=== PATIENT | female | born 1970 | race African-American/Black ===

== ENCOUNTER 2017-11-09 12:24 | Observation (INO) ==
[2017-11-09 14:38] LABS: Basophils % 0.2 % (0.0-0.8); Eosinophils % 0.2 % (0.00-10.9); Hematocrit 18.4 VOL% (35.7-47.0); Immature Granulocytes % 1.1 %; Immature Granulocytes Absolute 0.06 #; Lymphocytes # 0.9 10*3/uL (1.4-4.0); Lymphocytes % 15.3 % (21.3-54.2); Mean Corpuscular HGB Conc 30.4 GM/DL (32-36); Mean Corpuscular Hemoglobin 23 PG (27-34); Mean Corpuscular Volume 75.4 FL (87-102); Mean Platelet Volume 10.3 FL (9.6-12.0); Monocytes # 0.8 10*3/uL (0.11-0.8); Monocytes % 14.6 % (1.7-12.7); NRBC # 0.03 10*3/uL; Neutrophils # 3.9 10*3/uL (1.4-7.4); Neutrophils % 68.6 % (38.7-73.9); Platelet Count 248 T/CUMM (130-400); Red Blood Count 2.44 MC/CUMM (3.8-5.5); Red Cell Distribution Width 15.8 % (9.3-17.3); White Blood Count 5.7 T/CUMM (4-12)
[2017-11-09 14:42] LABS: Hemoglobin 5.6 GM/DL (12.0-16.0)
[2017-11-09 15:17] LABS: Calcium 5.9 MG/DL (8.5-10.1); Magnesium 1.5 MG/DL (1.8-2.4); Osmolality,Calculated 295.7 MOS/KG (273-304); Potassium 4.7 MMOL/L (3.5-5.1)
[2017-11-09] MEDS ORDERED: SODIUM CHLORIDE 0.9% 1,000 ML IV PRN (15:29)
[2017-11-09] MEDS ORDERED: hydrALAZINE 20 MG/1 ML VIAL IV STA (15:30)
[2017-11-09] MEDS ORDERED: DEXTROSE 50% 25 GM/50 ML VIAL IV PRN (15:56)
[2017-11-09] MEDS ORDERED: GLUCAGON 1 MG VIAL IM PRN (15:56)
[2017-11-09] MEDS: INSULIN LISPRO 100 UNIT/ML SUBCUT SCH (17:17)
[2017-11-10] MEDS: INSULIN LISPRO 100 UNIT/ML SUBCUT SCH ×3 (01:09→13:56)
[2017-11-10 05:35] LABS: Basophils % 0.2 % (0.0-0.8); Eosinophils % 0.7 % (0.00-10.9); Hematocrit 22.1 VOL% (35.7-47.0); Immature Granulocytes % 0.9 %; Immature Granulocytes Absolute 0.05 #; Lymphocytes # 0.9 10*3/uL (1.4-4.0); Lymphocytes % 16.8 % (21.3-54.2); Mean Corpuscular HGB Conc 31.7 GM/DL (32-36); Mean Corpuscular Hemoglobin 26 PG (27-34); Mean Corpuscular Volume 81.3 FL (87-102); Mean Platelet Volume 10.1 FL (9.6-12.0); Monocytes # 0.9 10*3/uL (0.11-0.8); Monocytes % 16.5 % (1.7-12.7); NRBC # 0.02 10*3/uL; Neutrophils # 3.5 10*3/uL (1.4-7.4); Neutrophils % 64.9 % (38.7-73.9); Platelet Count 201 T/CUMM (130-400); Red Blood Count 2.72 MC/CUMM (3.8-5.5); Red Cell Distribution Width 16.5 % (9.3-17.3); White Blood Count 5.5 T/CUMM (4-12)
[2017-11-10 06:05] LABS: Albumin 2.4 G/DL (3.4-5.0); Bilirubin,Total 0.8 MG/DL (0.2-1.0); Magnesium 1.6 MG/DL (1.8-2.4); Osmolality,Calculated 294.5 MOS/KG (273-304); Potassium 4.7 MMOL/L (3.5-5.1); Total Protein 6.1 G/DL (6.4-8.3)
[2017-11-10 06:08] LABS: Calcium 5.7 MG/DL (8.5-10.1)
[2017-11-10] MEDS ORDERED: CALCIUM GLUCONATE 2,000 MG in SODIUM CHLORIDE 0.9% 100 ML IV ONE (06:25)
[2017-11-10 06:45] LABS: Band Neutrophils 1 % (0-10); Giant Platelets Few; Hypochromasia 1+; Lymphocytes 18 % (20-55); Metamyelocytes 1 %; Ovalocytes Slight; Platelet Estimate Adequate; Segmented Neutrophils 65 % (50-85); Total Cells Counted 100
[2017-11-10 12:12] VITALS: BP 141/83
== END 2017-11-10 13:57 | disposition home or self-care (01) ==
LOC: N.ED 12:24 → N.EDINP 12:24 → N.4E 16:57
PROVIDERS: ADMIT Hospitalist; ATTEND Hospitalist

== ENCOUNTER 2017-12-17 10:31 | Inpatient (IN) ==
[2017-12-17] MEDS ORDERED: SODIUM CHLORIDE 0.9% 1,000 ML IV PRN ×2 (12:25→12:46)
[2017-12-17] MEDS ORDERED: ONDANSETRON 4 MG/2 ML VIAL IV PRN (12:33)
[2017-12-17 12:51] LABS: Eosinophils # 0.2 10*3/uL (0.0-0.87); Eosinophils % 4.4 % (0.00-10.9); Immature Granulocytes % 0.6 %; Immature Granulocytes Absolute 0.03 #; Lymphocytes # 0.7 10*3/uL (1.4-4.0); Lymphocytes % 14.5 % (21.3-54.2); Mean Corpuscular HGB Conc 32.1 GM/DL (32-36); Mean Corpuscular Hemoglobin 24 PG (27-34); Mean Corpuscular Volume 73.3 FL (87-102); Mean Platelet Volume 9.4 FL (9.6-12.0); Monocytes # 0.5 10*3/uL (0.11-0.8); Monocytes % 9.7 % (1.7-12.7); Neutrophils # 3.4 10*3/uL (1.4-7.4); Neutrophils % 70.8 % (38.7-73.9); Platelet Count 199 T/CUMM (130-400); Red Blood Count 2.21 MC/CUMM (3.8-5.5); Red Cell Distribution Width 21.5 % (9.3-17.3); White Blood Count 4.8 T/CUMM (4-12)
[2017-12-17 13:01] LABS: Hematocrit 16.2 VOL% (35.7-47.0); Hemoglobin 5.2 GM/DL (12.0-16.0)
[2017-12-17 13:35] LABS: Alanine Aminotransferase 32 U/L (13-56); Albumin 2.8 G/DL (3.4-5.0); Alkaline Phosphatase 163 U/L (45-117); Aspartate Amino Transferase 40 U/L (0-37); Bilirubin,Total < 0.39 MG/DL (0.2-1.0); Blood Urea Nitrogen 115 MG/DL (7-18); Glucose 100 MG/DL (74-106); Osmolality,Calculated 313.5 MOS/KG (273-304); Sodium 139 MMOL/L (136-145); Total Protein 6.5 G/DL (6.4-8.3)
[2017-12-17 13:42] LABS: Calcium < 5.0 MG/DL (8.5-10.1)
[2017-12-17] MEDS ORDERED: ceFAZolin 1,000 MG in SYRINGE 1 EACH IV ONE (14:19)
[2017-12-17] MEDS ORDERED: HEPARIN 5,000 UNIT/1 ML VIAL ONE (14:36)
[2017-12-17 15:10] LABS: Hepatitis A Ab IgM Quant 0.09 Index; Hepatitis A Ab IgM Result Negative (Negative); Hepatitis B Core IgM Quant 0.18 Index; Hepatitis B Core IgM Result Negative (Negative); Hepatitis C Virus Ab Quant 0.09 Index; Hepatitis C Virus Ab Result Negative (Negative)
[2017-12-17 15:41] LABS: Hepatitis B Surface Ag Quant < 0.10 Index; Hepatitis B Surface Ag Result Negative (Negative)
[2017-12-17] MEDS ORDERED: PROPOFOL 200 MG/20 ML VIAL IV ONE (16:47)
[2017-12-17] MEDS ORDERED: fentaNYL 100 MCG/2 ML VIAL ONE (16:48)
[2017-12-17] MEDS ORDERED: MIDAZOLAM 2 MG/2 ML VIAL ONE (16:48)
[2017-12-17] MEDS: CALCIUM ACETATE 667 MG CAPSULE PO SCH (18:34)
[2017-12-18 06:48] LABS: Eosinophils # 0.2 10*3/uL (0.0-0.87); Eosinophils % 5.1 % (0.00-10.9); Hematocrit 18.9 VOL% (35.7-47.0); Immature Granulocytes % 0.9 %; Immature Granulocytes Absolute 0.04 #; Lymphocytes # 0.7 10*3/uL (1.4-4.0); Lymphocytes % 16.7 % (21.3-54.2); Mean Corpuscular HGB Conc 32.8 GM/DL (32-36); Mean Corpuscular Hemoglobin 24 PG (27-34); Mean Corpuscular Volume 73.8 FL (87-102); Mean Platelet Volume 10.4 FL (9.6-12.0); Monocytes # 0.5 10*3/uL (0.11-0.8); Monocytes % 12.3 % (1.7-12.7); NRBC # 0.02 10*3/uL; Neutrophils # 2.8 10*3/uL (1.4-7.4); Platelet Count 185 T/CUMM (130-400); Red Blood Count 2.56 MC/CUMM (3.8-5.5); Red Cell Distribution Width 20.4 % (9.3-17.3); White Blood Count 4.3 T/CUMM (4-12)
[2017-12-18] MEDS ORDERED: HEPARIN 10,000 UNIT/10 ML VIAL IV PRN (06:49)
[2017-12-18 06:54] LABS: Hemoglobin 6.2 GM/DL (12.0-16.0)
[2017-12-18] MEDS: CALCIUM ACETATE 667 MG CAPSULE PO SCH ×3 (08:11→16:33)
[2017-12-18] MEDS: FAMOTIDINE 20 MG TABLET PO SCH (08:11)
[2017-12-18] MEDS: ALLOPURINOL 100 MG TABLET PO SCH (08:12)
[2017-12-18] MEDS: LEVOTHYROXINE 100 MCG TABLET PO SCH (08:12)
[2017-12-19 07:11] LABS: Basophils % 0.2 % (0.0-0.8); Eosinophils # 0.2 10*3/uL (0.0-0.87); Eosinophils % 3.6 % (0.00-10.9); Hematocrit 24.7 VOL% (35.7-47.0); Immature Granulocytes % 0.7 %; Immature Granulocytes Absolute 0.04 #; Lymphocytes # 0.6 10*3/uL (1.4-4.0); Lymphocytes % 10.7 % (21.3-54.2); Mean Corpuscular HGB Conc 32.8 GM/DL (32-36); Mean Corpuscular Hemoglobin 26 PG (27-34); Mean Corpuscular Volume 77.7 FL (87-102); Mean Platelet Volume 9.6 FL (9.6-12.0); Monocytes # 0.8 10*3/uL (0.11-0.8); Monocytes % 13.6 % (1.7-12.7); NRBC # 0.02 10*3/uL; Neutrophils # 3.9 10*3/uL (1.4-7.4); Neutrophils % 71.2 % (38.7-73.9); Red Cell Distribution Width 18.4 % (9.3-17.3); White Blood Count 5.5 T/CUMM (4-12)
[2017-12-19 07:18] LABS: Red Blood Count 3.18 MC/CUMM (3.8-5.5)
[2017-12-19 07:19] LABS: Hemoglobin 8.1 GM/DL (12.0-16.0); Platelet Count 127 T/CUMM (130-400)
[2017-12-19 07:30] LABS: Hemoglobin 8.1 GM/DL (12.0-16.0)
[2017-12-19 08:07] LABS: Osmolality,Calculated 285.5 MOS/KG (273-304); Potassium 3.7 MMOL/L (3.5-5.1)
[2017-12-19 09:17] LABS: Calcium 5.6 MG/DL (8.5-10.1)
[2017-12-19] MEDS: LEVOTHYROXINE 100 MCG TABLET PO SCH (09:20)
[2017-12-19] MEDS: FAMOTIDINE 20 MG TABLET PO SCH (09:20)
[2017-12-19] MEDS: ALLOPURINOL 100 MG TABLET PO SCH (09:20)
[2017-12-19] MEDS: CALCIUM ACETATE 667 MG CAPSULE PO SCH ×3 (09:20→16:25)
[2017-12-19] MEDS ORDERED: cloNIDine 0.1 MG TABLET PO ONE (16:09)
[2017-12-19] MEDS: CARVEDILOL 25 MG TABLET PO SCH ×2 (16:25→20:44)
[2017-12-19] MEDS ORDERED: cloNIDine 0.1 MG TABLET PO SCH (20:00)
[2017-12-19] MEDS: cloNIDine 0.1 MG TABLET PO PRN (20:44)
[2017-12-19] MEDS ORDERED: CARVEDILOL 25 MG TABLET PO SCH (21:00)
[2017-12-20] MEDS: cloNIDine 0.1 MG TABLET PO PRN ×3 (00:46→09:35)
[2017-12-20 03:57] LABS: Eosinophils # 0.3 10*3/uL (0.0-0.87); Eosinophils % 5.5 % (0.00-10.9); Hematocrit 31.2 VOL% (35.7-47.0); Hemoglobin 10.5 GM/DL (12.0-16.0); Immature Granulocytes % 0.7 %; Immature Granulocytes Absolute 0.03 #; Lymphocytes # 0.7 10*3/uL (1.4-4.0); Lymphocytes % 15.9 % (21.3-54.2); Mean Corpuscular HGB Conc 33.7 GM/DL (32-36); Mean Corpuscular Hemoglobin 26 PG (27-34); Monocytes # 0.8 10*3/uL (0.11-0.8); Monocytes % 18.6 % (1.7-12.7); Neutrophils # 2.7 10*3/uL (1.4-7.4); Neutrophils % 59.3 % (38.7-73.9); Platelet Count 110 T/CUMM (130-400); Red Cell Distribution Width 17.7 % (9.3-17.3); White Blood Count 4.5 T/CUMM (4-12)
[2017-12-20 04:34] LABS: Eosinophils 4 % (0-10); Lymphocytes 13 % (20-55); Platelet Estimate Adequate; Segmented Neutrophils 70 % (50-85); Total Cells Counted 100
[2017-12-20 04:35] LABS: Hypochromasia 1+; Polychromasia Slight; Tear Drop Cells Slight
[2017-12-20 08:20] VITALS: BP 157/98
[2017-12-20] MEDS: ALLOPURINOL 100 MG TABLET PO SCH (09:34)
[2017-12-20] MEDS: CARVEDILOL 25 MG TABLET PO SCH (09:34)
[2017-12-20] MEDS: FAMOTIDINE 20 MG TABLET PO SCH (09:34)
[2017-12-20] MEDS: LEVOTHYROXINE 100 MCG TABLET PO SCH (09:34)
[2017-12-20] MEDS: CALCIUM ACETATE 667 MG CAPSULE PO SCH (09:34)
== END 2017-12-20 11:37 | disposition home or self-care (01) | DRG 698 ==
LOC: N.5E 11:01 → SUATTDRO 11:01
PROVIDERS: ADMIT Internal Medicine Nephrology; ATTEND Internal Medicine Nephrology

== ENCOUNTER 2019-04-14 13:00 | Inpatient (IN) ==
[2019-04-21] MEDS ORDERED: LACTATED RINGERS 1,000 ML IV SCH (06:00)
[2019-04-21] MEDS ORDERED: SODIUM CHLORIDE 0.9% 250 ML IV SCH (07:00)
[2019-04-21 07:10] LABS: Basophils % 0.4 % (0.0-0.8); Eosinophils # 0.7 10*3/uL (0.0-0.87); Eosinophils % 13.3 % (0.00-10.9); Hematocrit 35.1 VOL% (35.7-47.0); Hemoglobin 10.5 GM/DL (12.0-16.0); Immature Granulocytes % 1.8 %; Lymphocytes # 0.6 10*3/uL (1.4-4.0); Lymphocytes % 11.5 % (21.3-54.2); Mean Corpuscular HGB Conc 29.9 GM/DL (32-36); Mean Corpuscular Volume 87.1 FL (87-102); Mean Platelet Volume 10.7 FL (9.6-12.0); Monocytes % 9.6 % (1.7-12.7); Neutrophils % 63.4 % (38.7-73.9); Platelet Count 133 T/CUMM (130-400); Red Blood Count 4.03 MC/CUMM (3.8-5.5); Red Cell Distribution Width 17.2 % (9.3-17.3); White Blood Count 5.4 T/CUMM (4-12)
[2019-04-21 07:34] LABS: Alanine Aminotransferase 16 U/L (13-56); Albumin 2.9 G/DL (3.4-5.0); Alkaline Phosphatase 105 U/L (45-117); Aspartate Amino Transferase 22 U/L (0-37); Bilirubin,Total < 0.39 MG/DL (0.2-1.0); Blood Urea Nitrogen 40 MG/DL (7-18); Glucose 97 MG/DL (74-106); Osmolality,Calculated 288.4 MOS/KG (273-304); Total Protein 7.2 G/DL (6.4-8.3)
[2019-04-21] MEDS ORDERED: cefOXitin 2,000 MG in SYRINGE 1 EACH IV ONE (08:00)
[2019-04-21 08:03] LABS: Eosinophils 11 % (0-10); Hypochromasia 1+; Lymphocytes 11 % (20-55); Ovalocytes Slight; Platelet Estimate Normal; Segmented Neutrophils 71 % (50-85); Total Cells Counted 100
[2019-04-21] MEDS ORDERED: LIDOCAINE 1% 20 ML VIAL ONE (09:06)
[2019-04-21] MEDS ORDERED: TISSUE ADHESIVE 1 EACH APPLICATOR TOP ONE (10:42)
[2019-04-21] MEDS ORDERED: BUPIVACAINE 0.5% 50 ML VIAL ONE ×2 (12:08→12:34)
[2019-04-21] MEDS ORDERED: DEXAMETHASONE 4 MG/1 ML VIAL ONE ×2 (12:08→12:34)
[2019-04-21] MEDS ORDERED: ONDANSETRON 4 MG/2 ML VIAL IV PRN ×2 (12:34→13:57)
[2019-04-21] MEDS ORDERED: ONDANSETRON 4 MG/2 ML VIAL ONE (12:38)
[2019-04-21] MEDS ORDERED: HYDROmorphone 2 MG/1 ML VIAL ONE (12:38)
[2019-04-21] MEDS: HYDROmorphone 2 MG/1 ML VIAL IV PRN ×2 (12:40→12:45)
[2019-04-21] MEDS ORDERED: fentaNYL 100 MCG/2 ML VIAL ONE (12:41)
[2019-04-21] MEDS ORDERED: PROPOFOL 200 MG/20 ML VIAL IV ONE (12:41)
[2019-04-21] MEDS ORDERED: SEVOFLURANE 1 UNIT/15 MINUTE INH ONE (12:41)
[2019-04-21] MEDS ORDERED: SUCCINYLCHOLINE 200 MG/10 ML VIAL ONE (12:42)
[2019-04-21] MEDS ORDERED: GLYCOPYRROLATE 0.4 MG/2 ML VIAL ONE (12:42)
[2019-04-21] MEDS ORDERED: ROCURONIUM 100 MG/10 ML VIAL IV ONE (12:42)
[2019-04-21] MEDS ORDERED: MIDAZOLAM 2 MG/2 ML VIAL ONE (12:42)
[2019-04-21] MEDS ORDERED: NEOSTIGMINE 10 MG/10 ML VIAL ONE (12:42)
[2019-04-21] MEDS ORDERED: PHENYLEPHRINE 1 MG/10 ML SYRINGE IV ONE (12:42)
[2019-04-21 13:18] LABS: Apearance,Urine CLEAR (Clear); Bilirubin,Urine Negative (Negative); Blood, Urine Small mg/dL (Negative); Glucose,Urine (UA) 50 mg/dL (Negative); Ketones,Urine Negative (Negative); Nitrite,Urine Negative (Negative); Protein,Urine 30 MG/DL; RBC,Urine 3 /HPF (0-4); Squamous Epithelial Cell,Urine Occasional /HPF (0-10); Urine Color Straw (Yellow); Urine Specific Gravity 1.008 (1.001-1.035); Urine Urobilinogen < 2.0 EU/DL (0.2-1.0); WBC,Urine 1 /HPF (0-6)
[2019-04-21] MEDS ORDERED: BENZOCAINE/MENTHOL LOZENGE 18/BOX PO PRN (13:57)
[2019-04-21] MEDS ORDERED: BISACODYL 10 MG SUPP RECTAL PRN (13:57)
[2019-04-21] MEDS ORDERED: ACETAMINOPHEN 325 MG TABLET PO PRN (13:57)
[2019-04-21] MEDS ORDERED: IBUPROFEN 800 MG TABLET PO PRN (13:57)
[2019-04-21] MEDS ORDERED: DOCUSATE SODIUM 100 MG CAPSULE PO PRN (13:57)
[2019-04-21] MEDS ORDERED: MAGNESIUM HYDROXIDE SUSP 30 ML UDCUP PO PRN (13:57)
[2019-04-21] MEDS ORDERED: NEOSTIGMINE 10 MG/10 ML VIAL IV ONE (15:04)
[2019-04-21] MEDS: SODIUM CHLORIDE 0.9% 1,000 ML IV SCH ×2 (15:10→20:43)
[2019-04-21] MEDS ORDERED: NALOXONE 0.4 MG/ML VIAL IV PRN (16:31)
[2019-04-21] MEDS ORDERED: HYDROmorphone PCA 30 MG/30 ML SYRINGE IV SCH (17:00)
[2019-04-21] MEDS: KETOROLAC 15 MG/1 ML VIAL IV SCH ×2 (17:36→23:37)
[2019-04-21] MEDS: ceFAZolin 1,000 MG in SYRINGE 1 EACH IV SCH (18:35)
[2019-04-21] MEDS: CLINDAMYCIN 1% LOTION 60 ML BOTTLE TOP SCH (20:05)
[2019-04-21] MEDS ORDERED: HydrOXYzine PAMOATE 50 MG CAPSULE PO PRN (21:00)
[2019-04-22] MEDS: ceFAZolin 1,000 MG in SYRINGE 1 EACH IV SCH (02:29)
[2019-04-22] MEDS: KETOROLAC 15 MG/1 ML VIAL IV SCH (04:50)
[2019-04-22 05:54] LABS: Basophils % 0.2 % (0.0-0.8); Hematocrit 34.5 VOL% (35.7-47.0); Hemoglobin 10.3 GM/DL (12.0-16.0); Immature Granulocytes % 1.3 %; Immature Granulocytes Absolute 0.07 #; Lymphocytes # 0.6 10*3/uL (1.4-4.0); Lymphocytes % 10.1 % (21.3-54.2); Mean Corpuscular HGB Conc 29.9 GM/DL (32-36); Mean Corpuscular Volume 87.1 FL (87-102); Monocytes % 6.5 % (1.7-12.7); Neutrophils % 81.9 % (38.7-73.9); Platelet Count 105 T/CUMM (130-400); Red Blood Count 3.96 MC/CUMM (3.8-5.5); Red Cell Distribution Width 16.9 % (9.3-17.3); White Blood Count 5.6 T/CUMM (4-12)
[2019-04-22 06:09] LABS: Anisocytosis 1+; Hypochromasia 1+; Platelet Estimate Decreased
[2019-04-22] MEDS: CLINDAMYCIN 1% LOTION 60 ML BOTTLE TOP SCH ×2 (07:30→22:14)
[2019-04-22] MEDS: CALCIUM ACETATE 667 MG CAPSULE PO SCH ×2 (18:21→18:44)
[2019-04-22] MEDS: methIMAzole 5 MG TABLET PO SCH (18:22)
[2019-04-22] MEDS: MULTIVITAMIN (BEROCCA) TABLET PO SCH (18:22)
[2019-04-22] MEDS: ALLOPURINOL 100 MG TABLET PO SCH (18:23)
[2019-04-22] MEDS: amLODIPine 5 MG TABLET PO SCH (18:25)
[2019-04-22] MEDS: LISINOPRIL 20 MG TABLET PO SCH (18:26)
[2019-04-22] MEDS: CARVEDILOL 25 MG TABLET PO SCH ×2 (18:43→23:11)
[2019-04-23] MEDS: CLINDAMYCIN 1% LOTION 60 ML BOTTLE TOP SCH (07:40)
[2019-04-23] MEDS: CALCIUM ACETATE 667 MG CAPSULE PO SCH ×2 (09:23→11:56)
[2019-04-23] MEDS: methIMAzole 5 MG TABLET PO SCH (09:23)
[2019-04-23] MEDS: MULTIVITAMIN (BEROCCA) TABLET PO SCH (09:23)
[2019-04-23] MEDS: LISINOPRIL 20 MG TABLET PO SCH (09:23)
[2019-04-23] MEDS: CARVEDILOL 25 MG TABLET PO SCH (09:24)
[2019-04-23] MEDS: ALLOPURINOL 100 MG TABLET PO SCH (09:24)
[2019-04-23] MEDS: amLODIPine 5 MG TABLET PO SCH (09:24)
[2019-04-23 11:25] VITALS: BP 137/86
== END 2019-04-23 15:05 | disposition home or self-care (01) | DRG 742 ==
LOC: N.SDSINP 04-21 06:05 → MERGE 04-21 06:05 → N.OB 04-21 11:51
PROVIDERS: ADMIT Obstetrics & Gynecology; ATTEND Obstetrics & Gynecology

== ENCOUNTER 2019-08-20 17:20 | Inpatient (IN) ==
[2019-08-20] MEDS ORDERED: ONDANSETRON 4 MG/2 ML VIAL IV STA (17:38)
[2019-08-20] MEDS ORDERED: methylPREDNISolone SOD SUC 125 MG/2 ML VIAL IV STA (17:38)
[2019-08-20] MEDS ORDERED: AMPICILLIN/SULBACTAM 3,000 MG in SODIUM CHLORIDE 0.9% 100 ML IV STA (17:38)
[2019-08-20] MEDS ORDERED: KETOROLAC 30 MG/1 ML VIAL IV STA (17:40)
[2019-08-20] MEDS ORDERED: hydrALAZINE 20 MG/1 ML VIAL IV STA (17:43)
[2019-08-20 18:21] LABS: INR 0.9; PT Patient Result 10.3 SECS (9.6-12.2); Partial Thromboplastin Time 27.3 SECS (20.8-36.0)
[2019-08-20 18:30] LABS: Basophils % 0.5 % (0.0-0.8); Eosinophils # 0.1 10*3/uL (0.0-0.87); Eosinophils % 2.1 % (0.00-10.9); Hematocrit 35.7 VOL% (35.7-47.0); Immature Granulocytes % 1.8 %; Immature Granulocytes Absolute 0.07 #; Lymphocytes # 0.3 10*3/uL (1.4-4.0); Mean Corpuscular HGB Conc 28.9 GM/DL (32-36); Mean Corpuscular Volume 79.2 FL (87-102); NRBC # 0.03 10*3/uL; Neutrophils % 81.6 % (38.7-73.9); Platelet Count 157 T/CUMM (130-400); Red Blood Count 4.51 MC/CUMM (3.8-5.5); Red Cell Distribution Width 23.1 % (9.3-17.3); White Blood Count 3.8 T/CUMM (4-12)
[2019-08-20 18:31] LABS: Hemoglobin 10.3 GM/DL (12.0-16.0)
[2019-08-20 18:39] LABS: Alanine Aminotransferase 20 U/L (13-56); Albumin 3.2 G/DL (3.4-5.0); Alkaline Phosphatase 134 U/L (45-117); Aspartate Amino Transferase 34 U/L (0-37); Blood Urea Nitrogen 34 MG/DL (7-18); Calcium 11.3 MG/DL (8.5-10.1); Estimated Glom Filtration Rate 6 ML/MIN; Glucose 85 MG/DL (74-106); Osmolality,Calculated 281.7 MOS/KG (273-304); Total Protein 8.3 G/DL (6.4-8.3)
[2019-08-20 18:46] LABS: Troponin I 0.218 NG/ML (0.00-0.045)
[2019-08-20 20:20] LABS: Hypochromasia Slight; Microcytosis 1+; Ovalocytes Few; Platelet Estimate Normal
[2019-08-20] MEDS ORDERED: DOCUSATE SODIUM 100 MG CAPSULE PO PRN (23:52)
[2019-08-20] MEDS ORDERED: VANCOMYCIN INJ 1,000 MG in SODIUM CHLORIDE 0.9% 250 ML IV PRN (23:52)
[2019-08-21] MEDS: PIPERACILLIN/TAZOBACTAM 3,375 MG in SODIUM CHLORIDE 0.9% 100 ML IV SCH ×2 (01:39→12:12)
[2019-08-21] MEDS: HEPARIN 5,000 UNIT/1 ML VIAL SUBCUT SCH ×3 (01:42→15:56)
[2019-08-21 03:06] LABS: Basophils % 0.4 % (0.0-0.8); Hematocrit 32.2 VOL% (35.7-47.0); Hemoglobin 9.3 GM/DL (12.0-16.0); Immature Granulocytes % 2.2 %; Immature Granulocytes Absolute 0.06 #; Lymphocytes # 0.2 10*3/uL (1.4-4.0); Lymphocytes % 7.6 % (21.3-54.2); Mean Corpuscular HGB Conc 28.9 GM/DL (32-36); Mean Corpuscular Volume 78.7 FL (87-102); Mean Platelet Volume 9.3 FL (9.6-12.0); Monocytes % 3.6 % (1.7-12.7); NRBC # 0.02 10*3/uL; Neutrophils % 86.2 % (38.7-73.9); Platelet Count 131 T/CUMM (130-400); Red Blood Count 4.09 MC/CUMM (3.8-5.5); Red Cell Distribution Width 23.1 % (9.3-17.3); White Blood Count 2.8 T/CUMM (4-12)
[2019-08-21 03:37] LABS: Folate > 24.0 NG/ML (5.4-24.0); Vitamin B12 952 PG/ML (211-911)
[2019-08-21] MEDS ORDERED: VANCOMYCIN INJ 1,000 MG in SODIUM CHLORIDE 0.9% 250 ML IV ONE (04:00)
[2019-08-21 04:02] LABS: Osmolality,Calculated 288.8 MOS/KG (273-304); Thyroid Stimulating Hormone 1.3 uIU/ml (0.358-3.74)
[2019-08-21 04:18] LABS: % Iron Saturation 33.6 % (18-50); Ferritin 2749.8 ng/ml (8-252)
[2019-08-21 04:21] LABS: Sedimentation Rate-Westergren 37 MM/HR (0-20)
[2019-08-21] MEDS ORDERED: VANCOMYCIN INJ 500 MG in SODIUM CHLORIDE 0.9% 100 ML IV PRN (08:50)
[2019-08-21] MEDS ORDERED: VANCOMYCIN INJ 500 MG in SODIUM CHLORIDE 0.9% 100 ML IV ONE (09:00)
[2019-08-21 10:16] LABS: Hemoglobin A1 (Alkaline) 97.7 % (96.5-98.5); Hemoglobin A2 (Alkaline) 2.3 % (1.5-3.5)
[2019-08-21] MEDS: ACETAMINOPHEN 325 MG TABLET PO PRN ×2 (13:49→21:40)
[2019-08-21] MEDS ORDERED: diphenhydrAMINE CAP 25 MG CAPSULE PO PRN (19:11)
[2019-08-21] MEDS: carvediloL 25 MG TABLET PO SCH (21:39)
[2019-08-22] MEDS: PIPERACILLIN/TAZOBACTAM 3,375 MG in SODIUM CHLORIDE 0.9% 100 ML IV SCH ×3 (01:01→23:38)
[2019-08-22] MEDS: HEPARIN 5,000 UNIT/1 ML VIAL SUBCUT SCH ×4 (01:04→23:37)
[2019-08-22 05:45] LABS: Basophils % 0.2 % (0.0-0.8); Eosinophils # 0.1 10*3/uL (0.0-0.87); Hematocrit 27.9 VOL% (35.7-47.0); Immature Granulocytes % 2.7 %; Immature Granulocytes Absolute 0.14 #; Lymphocytes # 0.3 10*3/uL (1.4-4.0); Lymphocytes % 5.1 % (21.3-54.2); Mean Corpuscular HGB Conc 28.7 GM/DL (32-36); Mean Corpuscular Volume 80.6 FL (87-102); Mean Platelet Volume 9.7 FL (9.6-12.0); Monocytes % 3.9 % (1.7-12.7); NRBC # 0.04 10*3/uL; Neutrophils % 87.1 % (38.7-73.9); Platelet Count 120 T/CUMM (130-400); Red Blood Count 3.46 MC/CUMM (3.8-5.5); Red Cell Distribution Width 23.5 % (9.3-17.3); White Blood Count 5.1 T/CUMM (4-12)
[2019-08-22 06:07] LABS: Calcium 10.5 MG/DL (8.5-10.1); Hypochromasia 1+; Osmolality,Calculated 294.4 MOS/KG (273-304)
[2019-08-22 06:08] LABS: Microcytosis 1+; Ovalocytes Few; Platelet Estimate Decreased; Polychromasia Slight; Target Cells Slight
[2019-08-22] MEDS: ACETAMINOPHEN 325 MG TABLET PO PRN ×2 (10:40→17:34)
[2019-08-22] MEDS: ONDANSETRON 4 MG/2 ML VIAL IV PRN (10:41)
[2019-08-22] MEDS: CALCIUM ACETATE 667 MG CAPSULE PO SCH ×3 (13:01→17:58)
[2019-08-22] MEDS: carvediloL 25 MG TABLET PO SCH ×2 (13:01→17:34)
[2019-08-22] MEDS: DAPSONE 100 MG TABLET PO SCH (13:02)
[2019-08-22] MEDS: methIMAzole 5 MG TABLET PO SCH (13:02)
[2019-08-22] MEDS: ALLOPURINOL 100 MG TABLET PO SCH (13:02)
[2019-08-22] MEDS: LISINOPRIL 20 MG TABLET PO SCH (13:02)
[2019-08-22] MEDS: amLODIPine 5 MG TABLET PO SCH (13:02)
[2019-08-22] MEDS ORDERED: VANCOMYCIN INJ 500 MG in SODIUM CHLORIDE 0.9% 100 ML IV ONE (17:00)
[2019-08-22] MEDS: PANTOPRAZOLE 40 MG VIAL IV SCH (17:34)
[2019-08-23] MEDS: ACETAMINOPHEN 325 MG TABLET PO PRN (04:04)
[2019-08-23] MEDS ORDERED: LOPERAMIDE 2 MG CAPSULE PO PRN (07:54)
[2019-08-23] MEDS: CALCIUM ACETATE 667 MG CAPSULE PO SCH ×3 (09:09→17:39)
[2019-08-23] MEDS: ALLOPURINOL 100 MG TABLET PO SCH (09:10)
[2019-08-23] MEDS: amLODIPine 5 MG TABLET PO SCH (09:10)
[2019-08-23] MEDS: LISINOPRIL 20 MG TABLET PO SCH (09:10)
[2019-08-23] MEDS: PANTOPRAZOLE 40 MG VIAL IV SCH (09:10)
[2019-08-23] MEDS: carvediloL 25 MG TABLET PO SCH ×2 (09:10→17:55)
[2019-08-23] MEDS: methIMAzole 5 MG TABLET PO SCH (09:10)
[2019-08-23] MEDS: HEPARIN 5,000 UNIT/1 ML VIAL SUBCUT SCH ×3 (09:10→23:38)
[2019-08-23] MEDS: DAPSONE 100 MG TABLET PO SCH (09:10)
[2019-08-23] MEDS: ONDANSETRON 4 MG/2 ML VIAL IV PRN ×2 (09:16→14:41)
[2019-08-23] MEDS: PIPERACILLIN/TAZOBACTAM 3,375 MG in SODIUM CHLORIDE 0.9% 100 ML IV SCH (14:43)
[2019-08-23] MEDS ORDERED: MICAFUNGIN 100 MG in SODIUM CHLORIDE 0.9% 100 ML IV SCH (16:00)
[2019-08-24] MEDS: PIPERACILLIN/TAZOBACTAM 3,375 MG in SODIUM CHLORIDE 0.9% 100 ML IV SCH ×2 (03:15→16:50)
[2019-08-24] MEDS: CALCIUM ACETATE 667 MG CAPSULE PO SCH ×2 (08:25→12:25)
[2019-08-24] MEDS: ALLOPURINOL 100 MG TABLET PO SCH (08:26)
[2019-08-24] MEDS: LISINOPRIL 20 MG TABLET PO SCH (08:26)
[2019-08-24] MEDS: PANTOPRAZOLE 40 MG VIAL IV SCH (08:26)
[2019-08-24] MEDS: methIMAzole 5 MG TABLET PO SCH (08:26)
[2019-08-24] MEDS: HEPARIN 5,000 UNIT/1 ML VIAL SUBCUT SCH (08:26)
[2019-08-24] MEDS: carvediloL 25 MG TABLET PO SCH (08:26)
[2019-08-24] MEDS: amLODIPine 5 MG TABLET PO SCH (08:26)
[2019-08-24] MEDS: DAPSONE 100 MG TABLET PO SCH (08:28)
[2019-08-24] MEDS ORDERED: NALOXONE 0.4 MG/ML VIAL IV ONE (09:47)
[2019-08-24] MEDS ORDERED: hydrALAZINE 20 MG/1 ML VIAL IV PRN (09:51)
[2019-08-24] MEDS ORDERED: SODIUM CHLORIDE 0.9% 1,000 ML IV SCH (11:00)
[2019-08-24 12:59] VITALS: BP 167/105
[2019-08-24 14:16] LABS: PT Patient Result 10.9 SECS (9.6-12.2); Partial Thromboplastin Time 29.9 SECS (20.8-36.0)
[2019-08-24 14:23] LABS: Albumin 2.6 G/DL (3.4-5.0); Bilirubin,Total 0.8 MG/DL (0.2-1.0); Calcium 10.7 MG/DL (8.5-10.1); Osmolality,Calculated 289.7 MOS/KG (273-304)
[2019-08-24 14:35] LABS: Basophils # 0.1 10*3/uL (0.0-0.2); Basophils % 0.9 % (0.0-0.8); Eosinophils % 0.5 % (0.00-10.9); Hematocrit 36.8 VOL% (35.7-47.0); Hemoglobin 10.5 GM/DL (12.0-16.0); Immature Granulocytes % 6.3 %; Immature Granulocytes Absolute 0.36 #; Lymphocytes # 0.3 10*3/uL (1.4-4.0); Lymphocytes % 5.7 % (21.3-54.2); Mean Corpuscular HGB Conc 28.5 GM/DL (32-36); Mean Corpuscular Volume 80.2 FL (87-102); Monocytes % 3.8 % (1.7-12.7); Neutrophils % 82.8 % (38.7-73.9); Platelet Count 124 T/CUMM (130-400); Red Blood Count 4.59 MC/CUMM (3.8-5.5); Red Cell Distribution Width 25.3 % (9.3-17.3); White Blood Count 5.8 T/CUMM (4-12)
[2019-08-24] MEDS ORDERED: niCARdipine INJ 25 MG in SODIUM CHLORIDE 0.9% 240 ML IV PRN (15:18)
[2019-08-24 15:37] LABS: Anisocytosis 1+; Lymphocytes 8 % (20-55); Nucleated Red Blood Cells 3 (0-5); Polychromasia 1+; Segmented Neutrophils 87 % (50-85); Total Cells Counted 100
[2019-08-24 15:38] LABS: Hypochromasia 2+; Poikilocytosis 1+
[2019-08-24 15:39] LABS: Ovalocytes Slight
[2019-08-24 15:40] LABS: Helmet Cells Few; Target Cells Few
[2019-08-24 15:41] LABS: Platelet Estimate Adequate; Schistocytes Few; Smudge Cells Few
[2019-08-24] MEDS ORDERED: LIDOCAINE 100 MG/5 ML SYRINGE ONE ×2 (18:20→18:22)
[2019-08-24] MEDS ORDERED: LIDOCAINE 2% 5 ML VIAL MISC INJ PRN (18:34)
== END 2019-08-24 19:05 | disposition hospice, home (50) | DRG 640 ==
LOC: EDUNIT# → EDBD → N.ED 17:20 → N.EDINP 22:13 → SUATTDRO 22:13 → N.5E 22:48 → N.ICU 08-24 13:00
PROVIDERS: ADMIT Hospitalist; ATTEND Internal Medicine